=== PATIENT | female | born 1965 | race African-American/Black ===

== ENCOUNTER 2020-11-27 01:00 | Day surgery (SDC) | payer OTHER, SELFPAY ==
[2020-11-20 11:09] VITALS: BMI 38.1
[2020-11-27 07:03] VITALS: BP 148/90; PULSE 76; RESP 17; TEMP 36.1; O2SAT 97; BMI 38.3
[2020-11-27] MEDS: LACTATED RINGERS 1,000 ML 150 ML IV CONT (07:18)
--- NOTE | 2020-11-27 07:49 | WPDANESEPPF ---
Anes - Initial Pre Proc Eval Procedure: Operation Date: 11/27/20 08:00 Proposed Procedures p Screening Colonoscopy - Sarkis Varela MD Date/Time: 11/27/20 07:49 Surgeon: Sarkis Varela MD Pre Op Diagnosis: neoplasm screening Patient Data Age: 54 Gender: F Height: 1.65 m Weight: 104.5 kg Last Vital Signs Temp 97 F L 11/27/20 07:03 Pulse 76 11/27/20 07:03 Resp 17 11/27/20 07:03 BP 148/90 H 11/27/20 07:03 Pulse Ox 97 11/27/20 07:03 Allergies Allergy/AdvReac Type Severity Reaction Status Date / Time No Known Allergies Allergy Unknown Verified 11/27/20 07:02 Home Medications Medication Instructions Recorded Confirmed Type aspirin 81 mg tablet,delayed 81 mg PO DAILY 07/15/19 11/27/20 History release potassium 99 mg PO DAILY 11/20/20 11/27/20 History terbinafine HCl 250 mg PO DAILY 11/20/20 11/27/20 History Patient hx anesthesia problems: none Family hx anesthesia problems: none PMFSH Past Medical History Medical History History of stomach ulcers Rotator cuff disorder Surgical History Surgical History H/O elbow surgery H/O inguinal hernia repair H/O knee surgery History of bilateral carpal tunnel release History of hysterectomy, supracervical History of laparoscopy Hx of tonsillectomy Previous section x 2 Family History Family History Mother Heart disease Father Heart disease Diabetes mellitus Hypertension Malignant neoplasm of prostate Grandparent Hypertension Heart disease Social History Social History Smoking status: Never smoker Second hand tobacco smoke exposure: No Alcohol intake: never Alcohol use details: rarely Living arrangements: with family Spiritual care concerns: No Anes - Eval Final PreProcedure Day of Procedure 11/27/20 07:49 Patient weight: obese Heart: regular rate and rhythm Lungs: clear to auscultation Airway: Mallampati scale class III Neurological: alert and oriented Last oral intake: >/= 8 hours ASA classification: III Emergent: no Anesthetic plan: proceed Anesthesia type and monitoring: general GIVS and standard monitoring Informed Consent: The patient's anesthetic plan and its attendant risks and benefits were discussed with the patient/family/POA. Questions were solicited and answers provided to the satisfaction of the patient/family/POA.
--- NOTE | 2020-11-27 08:02 | PM.HPGS ---
History of Present Illness History of Present Illness Consent: Risks, benefits, and alternatives have been discussed and questions answered. Patient agrees to proceed with procedure. Chief complaint: neoplasm screening Narrative: Terra Parker is a 54 year old female here for screening colonoscopy, last one 10 years ago Review of Systems Constitutional: Constitutional: Denies headache(s) and Denies weakness Eyes: Eyes: Denies blurry vision ENT: Reports Normal hearing present, Denies headache(s) and Denies neck pain Cardiovascular: Cardiovascular: Denies chest pain and Denies dyspnea Respiratory: Respiratory: Denies dyspnea Gastrointestinal: Gastrointestinal: Reports no additional gastrointestinal complaints Genitourinary: Genitourinary: Denies dysuria Musculoskeletal: Musculoskeletal: Denies neck pain Integumentary/Breasts: Skin/Breast: Denies dry skin Neurologic: Reports Normal hearing present, Denies headache(s) and Denies weakness Psychiatric: Psychiatric: Denies anxiety Endocrine: Endocrine: Denies change in body appearance Hematologic/Lymphatic: Hematologic/Lymphatic: Denies easy bleeding Allergic/Immunologic: Allergic/Immunologic: Denies urticaria PMFSH Past Medical History Medical History History of stomach ulcers Rotator cuff disorder Surgical History Surgical History H/O elbow surgery H/O inguinal hernia repair H/O knee surgery History of bilateral carpal tunnel release History of hysterectomy, supracervical History of laparoscopy Hx of tonsillectomy Previous section x 2 Family History Family History Mother Heart disease Father Heart disease Diabetes mellitus Hypertension Malignant neoplasm of prostate Grandparent Hypertension Heart disease Social History Social History Smoking status: Never smoker Second hand tobacco smoke exposure: No Alcohol intake: never Alcohol use details: rarely Living arrangements: with family Spiritual care concerns: No Meds Home Medications and Allergies Home Medications Medication Instructions Recorded Confirmed Type aspirin 81 mg tablet,delayed 81 mg PO DAILY 07/15/19 11/27/20 History release potassium 99 mg PO DAILY 11/20/20 11/27/20 History terbinafine HCl 250 mg PO DAILY 11/20/20 11/27/20 History Allergies Allergy/AdvReac Type Severity Reaction Status Date / Time No Known Allergies Allergy Unknown Verified 11/27/20 07:02 Vital Signs Vital Signs - 24 hr 11/27/20 07:03 Temperature 97 F L Pulse Rate 76 Respiratory Rate 17 Blood Pressure 148/90 H Pulse Oximetry 97 Exam Const: General: comfortable and no acute distress HENMT: General nose exam: Normal nares present Eyes: General: appearance normal, both eyes and all related structures Neck: Neck: no JVD Resp: Auscultation: clear to auscultation bilaterally Cardio: Rate: regular rate Rhythm: regular rhythm GI: Inspection: non-distended GI Palp: Yes Soft to palpation Skin: General skin exam: normal color Neuro: General: gait normal Speech: normal speech Extrem: General: normal to inspection Psych: Mental Status: mental status grossly normal Assessment and Plan Assessment and plan (1) Encounter for screening colonoscopy: Code(s): Z12.11 - Encounter for screening for malignant neoplasm of colon Status: Acute Assessment and Plan: colonoscopy
[2020-11-27 08:17] VITALS: BP 103/83; PULSE 72; RESP 22; O2SAT 96
[2020-11-27 08:27] VITALS: BP 112/74; PULSE 78; RESP 20; O2SAT 96
[2020-11-27 08:37] VITALS: BP 118/77; PULSE 68; RESP 18; O2SAT 100
== END 2020-11-27 08:51 | disposition home or self-care (01) ==
PROVIDERS: Visit Provider Internal Medicine Gastroenterology
PROC: 0DJD8ZZ Inspection of Lower Intestinal Tract, Via Natural or Artificial Opening Endoscopic (ICD-10-PCS; CPT 45378; principal; 2020-11-27 08:00)
DX: Z12.11 Encounter for screening for malignant neoplasm of colon (principal); K57.30 Diverticulosis of large intestine without perforation or abscess without bleeding; K64.8 Other hemorrhoids; Z87.11 Personal history of peptic ulcer disease; Z90.711 Acquired absence of uterus with remaining cervical stump
CPT/HCPCS: 45378; J2704; J7120

== ENCOUNTER 2022-05-02 12:52 | Outpatient (CLI) | payer OTHER, SELFPAY ==
--- NOTE | ~2022-05-02 | MMUS_ITS ---
EXAMINATION: MM diagnostic usha LT w mounika, US breast LT complete HISTORY: Longitudinal palpable area. Left axillary pain. TECHNIQUE: Additional 3-D tomosynthesis images of the left breast were performed and synthetic 2-D im ages were generated. CAD analysis was submitted and interpreted. High resolution complete left breast ultrasound was performed. COMPARISON: Mammogram dated 08/16/2021 BREAST PARENCHYMAL COMPOSITION: Breast composed of scattered areas of fibroglandular density FINDINGS: MAMMOGRAPHIC FINDINGS: There are no suspicious masses, calcifications or architectural distortion in the left breast to sugg est malignancy. ULTRASOUND: Complete US of all 4 quadrants of the left breast and retroareolar region was reviewed. Normal hetero geneous echotexture without focal solid or cystic mass. IMPRESSION: 1. No evidence for malignancy in the left breast. 2. Routine yearly screening mammogram and regular clinical breast examination are recommended. BI-RADS Category 1: Negative Reviewed, dictated and finalized at location A. [facility] IMPRESSION: 1. No evidence for malignancy in the left breast. 2. Routine yearly screening mammogram and regular clinical breast examination a re recommended. BI-RADS Category 1: Negative
== END 2022-05-02 12:53 | disposition home or self-care (01) ==
PROVIDERS: Visit Provider Obstetrics & Gynecology
DX: N64.4 Mastodynia (principal)
CPT/HCPCS: 76641; 77061; 77065; G0279